=== PATIENT | female | born 1965 | race Hispanic/Latino ===

== ENCOUNTER 2019-06-28 13:22 | Emergency (ER) | payer SELFPAY ==
--- NOTE | 2019-06-28 14:31 | XRay Report ---
CHEST 1 VIEW INDICATION / CLINICAL INFORMATION: Shortness of breath. COMPARISON: None available. FINDINGS: SUPPORT DEVICES: None. HEART / MEDIASTINUM: No significant abnormality. LUNGS / PLEURA: No significant pulmonary or pleural abnormality. No pneumothorax. IMPRESSION: No acute finding. Signer Name: Donald Yañez MD Signed: 06/28/2019 2:26 PM Workstation Name: [id number]
[2019-06-28] MEDS ORDERED: ALBUTEROL 2.5 MG/3 ML NEBU IH ONE ×2 (14:44→19:48)
--- NOTE | 2019-06-28 15:10 | Emergency Department Report ---
ED General Adult HPI - General Chief complaint: Upper Respiratory Infection Stated complaint: COUGH,BODYACHE Time Seen by Provider: 06/28/19 14:17 Source: patient, EMS Mode of arrival: Stretcher Limitations: No Limitations - History of Present Illness Initial comments: Patient is a 54-year-old female past medical history of bronchitis who is been having cough and body ache for 4 days patient has a history of chronic bronchitis patient states that her body aches are a 7 out of 10 are an achy type of pain nothing makes them better and nothing makes them worse. Severity scale (0 -10): 0 - Related Data Previous Rx's Medication Instructions Recorded Last Taken Type Albuterol INH(or & Nicu Only) 2 puff IH QID PRN #8.5 gram 06/28/19 Unknown Rx [ProAir HFA Inhaler] Azithromycin [Zithromax TAB] 500 mg PO QDAY #6 tablet 06/28/19 Unknown Rx Allergies Allergy/AdvReac Type Severity Reaction Status Date / Time steroids Allergy Unknown Uncoded 06/28/19 13:30 ED Review of Systems ROS: Stated complaint: COUGH,BODYACHE Other details as noted in HPI Constitutional: denies: chills, fever Eyes: denies: eye pain, eye discharge, vision change ENT: denies: ear pain, throat pain Respiratory: denies: cough, shortness of breath, wheezing Cardiovascular: denies: chest pain, palpitations Endocrine: no symptoms reported Gastrointestinal: denies: abdominal pain, nausea, diarrhea Genitourinary: denies: urgency, dysuria, discharge Musculoskeletal: myalgia. denies: back pain, joint swelling, arthralgia Skin: denies: rash, lesions Neurological: denies: headache, weakness, paresthesias Psychiatric: denies: anxiety, depression Hematological/Lymphatic: denies: easy bleeding, easy bruising ED Past Medical Hx - Past Medical History Additional medical history: bronchitis - Social History Smoking Status: Current Every Day Smoker - Medications Home Medications: Home Medications Medication Instructions Recorded Confirmed Last Taken Type Albuterol INH(or & Nicu Only) 2 puff IH QID PRN #8.5 gram 06/28/19 Unknown Rx [ProAir HFA Inhaler] Azithromycin [Zithromax TAB] 500 mg PO QDAY #6 tablet 06/28/19 Unknown Rx ED Physical Exam - General Limitations: No Limitations General appearance: alert, in no apparent distress - Head Head exam: Present: atraumatic, normocephalic - Eye Eye exam: Present: normal appearance - ENT ENT exam: Present: mucous membranes moist - Neck Neck exam: Present: normal inspection - Respiratory Respiratory exam: Present: wheezes. Absent: respiratory distress - Cardiovascular Cardiovascular Exam: Present: regular rate, normal rhythm. Absent: systolic murmur, diastolic murmur, rubs, gallop - GI/Abdominal GI/Abdominal exam: Present: soft, normal bowel sounds - Extremities Exam Extremities exam: Present: normal inspection - Back Exam Back exam: Present: normal inspection - Neurological Exam Neurological exam: Present: alert, oriented X3 - Psychiatric Psychiatric exam: Present: normal affect, normal mood - Skin Skin exam: Present: warm, dry, intact, normal color. Absent: rash ED Course Vital Signs 06/28/19 06/28/19 06/28/19 13:33 13:38 13:46 Temperature 97.3 F L Pulse Rate 70 58 L Respiratory 18 24 Rate Blood Pressure 129/74 Blood Pressure 138/88 [Left] O2 Sat by Pulse 98 93 94 Oximetry 06/28/19 06/28/19 06/28/19 13:48 16:00 17:18 Temperature 98.7 F Pulse Rate 67 62 63 Respiratory 22 23 20 Rate Blood Pressure 136/82 135/85 Blood Pressure 129/74 [Left] O2 Sat by Pulse 94 91 91 Oximetry 06/28/19 18:14 Temperature Pulse Rate 62 Respiratory 20 Rate Blood Pressure Blood Pressure 136/71 [Left] O2 Sat by Pulse 93 Oximetry ED Medical Decision Making - Lab Data Result diagrams: 06/28/19 14:34 06/28/19 14:34 Lab Results 06/28/19 06/28/19 Range/Units 14:34 14:34 WBC 6.5 (4.5-11.0) K/mm3 RBC 4.50 (3.65-5.03) M/mm3 Hgb 15.7 H (10.1-14.3) gm/dl Hct 43.0 H (30.3-42.9) % MCV 96 (79-97) fl MCH 35 H (28-32) pg MCHC 36 H (30-34) % RDW 13.7 (13.2-15.2) % Plt Count 187 (140-440) K/mm3 Sodium 137 (137-145) mmol/L Potassium 4.2 (3.6-5.0) mmol/L Chloride 100.1 (98-107) mmol/L Carbon Dioxide 22 (22-30) mmol/L Anion Gap 19 mmol/L BUN 15 (7-17) mg/dL Creatinine 0.7 (0.7-1.2) mg/dL Estimated GFR > 60 ml/min BUN/Creatinine Ratio 21 % Glucose 82 (65-100) mg/dL Calcium 8.6 (8.4-10.2) mg/dL - Radiology Data Radiology results: report reviewed, image reviewed Chest x-ray: Shows no acute cardiopulmonary disease - Medical Decision Making Cdx: PNA Ddx: Bronchits, influenza I will get xray, blood work, breathing treatment and xrays and will send patient home. Critical care attestation.: If time is entered above; I have spent that time in minutes in the direct care of this critically ill patient, excluding procedure time. ED Disposition Clinical Impression: Influenza, Cough, SOB (shortness of breath) Disposition: DC- TO HOME OR SELFCARE Is pt being admited?: No Does the pt Need Aspirin: No Condition: Stable Instructions: Influenza (ED) Prescriptions: Albuterol INH(or & Nicu Only) [ProAir HFA Inhaler] 2 puff IH QID PRN #8.5 gram PRN Reason: Shortness Of Breath Azithromycin [Zithromax TAB] 500 mg PO QDAY #6 tablet Referrals: JOHN DURÁN MD [Primary Care Provider] - 3-5 Days
[2019-06-28] MEDS ORDERED: dexAMETHasone 20 MG/5 ML VIAL IV ONE (15:35)
[2019-06-28] MEDS ORDERED: MAGNESIUM SULFATE 2 GM/50 ML BAG IV ONE (15:35)
[2019-06-28 15:49] LABS: Mean Corpuscular HGB Conc 36 % (30-34); Mean Corpuscular Volume 96 fl (79-97); Red Cell Distribution Width 13.7 % (13.2-15.2)
[2019-06-28 15:52] LABS: Hemoglobin 15.7 gm/dl (10.1-14.3); Platelet Count 187 K/mm3 (140-440)
[2019-06-28] MEDS ORDERED: KETOROLAC 30 MG/1 ML INJ IV ONE (15:54)
[2019-06-28] MEDS ORDERED: ACETAMINOPHEN 500 MG TAB PO ONE (15:54)
[2019-06-28 16:00] LABS: BUN/Creatinine Ratio 21; Blood Urea Nitrogen 15 mg/dL (7-17); Calcium 8.6 mg/dL (8.4-10.2); Hemolysis Index 48
[2019-06-29 02:41] VITALS: BP 121/74
== END 2019-06-29 02:11 | disposition home or self-care (01) ==
LOC: ED 13:22
DX: J11.1 Influenza due to unidentified influenza virus with other respiratory manifestations (principal); F17.200 Nicotine dependence, unspecified, uncomplicated; Z79.899 Other long term (current) drug therapy; Z88.8 Allergy status to other drugs, medicaments and biological substances
CPT/HCPCS: 36415; 71045; 80048; 85027; 94640; 96365; 96375; 99284; J1100; J1885; J3475; 94644

== ENCOUNTER 2021-02-01 14:21 | Outpatient (CLI) | payer MEDICAID ==
--- NOTE | 2021-02-01 16:44 | Cat Scan Report ---
CT CHEST WITHOUT CONTRAST INDICATION / CLINICAL INFORMATION: R91.1 PULMONARY NODULE. Previous abnormal CTA chest with bilateral spiculated pulmonary nodules. TECHNIQUE: Axial CT images were obtained through the chest without contrast. All CT scans at this location are p erformed using CT dose reduction for ALARA by means of automated exposure control. COMPARISON: CTA chest dated 09/18/2020 FINDINGS: HEART: No significant abnormality. VASCULATURE: Normal caliber of the aorta with mild aortic and coronary atherosclerosis. LYMPH NODES: No significant adenopathy. TRACHEA AND BRONCHI:No significant abnormality. LUNGS: A spiculated solid right upper lobe noncalcified nodule is again seen on image 47 of series 2 located just above the right hilum measuring 1.8 x 1.6 cm, previously 1.6 x 1.4 cm. A spiculated kaylynn d noncalcified left upper lobe nodule measures 0.7 x 0.6 cm on image 28 of series 2, previously 0.9 x 0.7 cm. No other suspicious nodule or mass. Mild emphysema is unchanged. No suspicious consolidatio n. No significant pleural effusion. No pneumothorax. UPPER ABDOMEN: No significant abnormality. BONES: No acute abnormality or other significant interval changes. ADDITIONAL FINDINGS: None. IMPRESSION: 1. 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 Biopsy is recommended for further evaluation. Given the centr al location and close proximity of bronchial segments, bronchoscopic guided biopsy is suggested over percutaneous biopsy. 2. Slightly smaller left upper lobe nodule is favored to be benign. 3. No other significant interval changes. Signer Name: Castro Velásquez MD Signed: 02/01/2021 4:40 PM Workstation Name: [id number]
== END 2021-02-01 14:22 | disposition home or self-care (01) ==
LOC: CT 14:21
PROVIDERS: ATTEND Specialist
DX: R91.1 Solitary pulmonary nodule (principal)
CPT/HCPCS: 71250

== ENCOUNTER 2021-03-31 08:14 | Outpatient (CLI) | payer MEDICAID ==
--- NOTE | 2021-03-31 12:37 | PET Report ---
POSITRON EMISSION TOMOGRAPHY WITH CT FOR ATTENUATION CORRECTION AND ANATOMIC CORRELATION ONLY Indication: Solitary pulmonary nodule Comparison: CT chest 02/01/2021 Technique: Study was performed from skull base to mid thigh using 13.85 millicuries of F18-FDG inject ed into the right wrist at 0931 hours with scan initiation time of 1028 hours. Just prior to injectio n, serum glucose level was measured at 88 mg/dl. Low-resolution CT without contrast was performed. Al l CT scans at this location are performed using CT dose reduction for ALARA by means of automated exp osure control. CT findings: Multilevel posterior cervical fusion changes are noted. Sclerosis in the lateral aspect of the left scapula is unchanged. No other focal bony lesions are seen. Views of the head and neck sh ow no lesions. No significant axillary or chest wall abnormalities are noted. No pleural effusions ar e seen. No mediastinal or hilar masses are seen. No obvious endobronchial lesions are noted. Spiculat ed lesion in the left upper lobe laterally is probably slightly smaller though resolution differences make evaluation difficult. Certainly this is not increased in size. No other left-sided lesions are seen. The right lung the known spiculated mass is again noted in these central medial aspect of the u pper lobe adjacent to the hilum. This measures 2 cm in transverse width and 2.1 cm in AP diameter com pared with 1.8 cm and 1.6 cm respectively, on previous examination. Small pleural parenchymal density posteriorly in the right upper lobe is unchanged. Small peripheral nodule posteriorly in the superio r segment of the right lower lobe is stable. No new nodules or masses are seen. Views of the abdomen and pelvis show no bowel or urinary obstructive changes. No significant lymphade nopathy is seen. No free fluid is noted. No inflammatory changes are seen. Upper abdomen shows motion artifact but no obvious masses are identified. Adrenals appear within normal limits. Gallbladder and bile ducts appear within normal limits. No pelvic masses are seen. Uterus probably has been removed. PET findings: No hypermetabolic lesions are seen in the visualized head and neck. In the chest the ri ght upper lobe mass shows prominent increased metabolic activity with maximal SUV of 21.2. The small spiculated lesion in the left upper lobe shows only faint activity with maximal SUV of 1.9. No signif icant increase activity is seen in the arely or mediastinum. No hypermetabolic lesions are seen below the diaphragm. IMPRESSION: 1. 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 2. Small spiculated area of the left upper lobe shows only faint activity. Continued CT monitoring is suggested. 3. No evidence of metastatic disease. Signer Name: Abram Keen MD Signed: 03/31/2021 12:32 PM Workstation Name: [id number]
== END 2021-03-31 08:15 | disposition home or self-care (01) ==
LOC: PET 08:14
PROVIDERS: ATTEND Specialist
DX: N63.10 Unspecified lump in the right breast, unspecified quadrant (principal); R91.1 Solitary pulmonary nodule; M43.22 Fusion of spine, cervical region
CPT/HCPCS: 78815; 82962; A9552